=== PATIENT | female | born 1990 | race Caucasian/White ===

== ENCOUNTER 2018-02-09 20:44 | Emergency (ER) | payer BC ==
--- NOTE | 2018-02-09 20:49 | UC ---
Lower Extremity/Ankle HPI - HPI Summary HPI Summary: 27 yo female presents with left foot pain for the last 5 days. She tells me that 5 days ago her son was crying and she got up from the couch to run into the other room toward her son - she tripped on one of his toys and plantar flexed and inverted her left foot. Ever since that time has had 5th MT pain. Worse today as she had a long shift at work and was on her feet a lot. Has not taken anything for pain. She is ambulatory without assistance or significant limp. Denies numbness or tingling. - History of Current Complaint Stated Complaint: LEFT FOOT INJURY Time Seen by Provider: 02/09/18 20:48 Hx Obtained From: Patient Hx Last Menstrual Period: 08/25/15 thru 09/01/15 Onset/Duration: Sudden Onset Severity Initially: Moderate Severity Currently: Moderate Pain Intensity: 6 Pain Scale Used: 0-10 Numeric Aggravating Factor(s): Standing, Ambulation Able to Bear Weight: Yes - Allergies/Home Medications Allergies/Adverse Reactions: Allergies Allergy/AdvReac Type Severity Reaction Status Date / Time No Known Allergies Allergy Verified 02/09/18 21:02 Home Medications: Home Medications Levonorgestrel (Iud) [Mirena IUD] 20 mcg IU ONCE 02/09/18 [History Confirmed ] PMH/Surg Hx/FS Hx/Imm Hx - Additional Past Medical History Additional PMH: None Previously Healthy: Yes GI/ History: Gastroesophageal Reflux - Surgical History Surgical History: None - Family History Known Family History: Positive: None - Social History Occupation: Employed Full-time Lives: With Family Alcohol Use: Weekly Alcohol Amount: 1-2 times a week Substance Use Type: Marijuana Substance Use Comment - Amount & Last Used: maybe once a year Smoking Status (MU): Never Smoked Tobacco - Immunization History Most Recent Influenza Vaccination: none Review of Systems Constitutional: Negative Skin: Negative Respiratory: Negative Cardiovascular: Negative Neurovascular: Negative Musculoskeletal: Other: - Left foot pain Neurological: Negative Psychological: Negative All Other Systems Reviewed And Are Negative: Yes Physical Exam - Summary Physical Exam Summary: GENERAL: NAD. WDWN. No pain distress. SKIN: No rashes, sores, lesions, or open wounds. CHEST: No accessory muscle use. Breathing comfortably and in no distress. CV: Pulses intact PT and DP. Cap refill <2seconds MSK: LEFT FOOT: Moderate TTP over base of 5th MT. FROM. Strength 5/5. No edema or obvious bony deformities. Ankle NTTP. NEURO: Alert. Sensations intact and symmetric B/L LEs PSYCH: Age appropriate behavior. Triage Information Reviewed: Yes Vital Signs: Vital Signs: Temp Pulse Resp BP Pulse Ox 97.9 F 78 12 123/81 100 02/09/18 20:58 02/09/18 20:58 02/09/18 20:58 02/09/18 20:58 02/09/18 20:58 Vital Signs Reviewed: Yes Lower Extremity Course/Dx - Course Course Of Treatment: XR: wet read as there is no radiologist reading after 1999 is as follows: Negative for fracture. Suspect foot sprain. Advised to RICE, SERGIO wrap, and f/u with Sports medicine if symptoms persist or worsen. - Differential Dx/Diagnosis Provider Diagnoses: Left foot pain Discharge - Sign-Out/Discharge Documenting (check all that apply): Patient Departure - Discharge Plan Condition: Stable Disposition: HOME Patient Education Materials: Foot Sprain (ED) Referrals: Silvano Ochoa MD [Medical Doctor] - Patty Pena MD [Medical Doctor] - If Needed Additional Instructions: If you develop a fever, shortness of breath, chest pain, new or worsening symptoms - please call your PCP or go to the ED. 1) Rest, Ice, and elevate your foot as much as possible to reduce pain and swelling 2) If your symptoms persist please call Sports Medicine at the number below to schedule a follow up appointment Per institutional requirements, I have reviewed the chart, however, I was not consulted specifically or made aware of this patient by the above midlevel provider. I did not personally evaluate, interact with , or disposition this patient. - Billing Disposition and Condition Condition: STABLE Disposition: Home
[2018-02-09 21:05] VITALS: BP 123/81
--- NOTE | 2018-02-10 07:25 | RAD ---
INDICATION: Left foot injury COMPARISON: None TECHNIQUE: AP, lateral, and oblique views were obtained. FINDINGS: The bony structures, joint spaces, and soft tissues are normal for age. IMPRESSION: NEGATIVE EXAMINATION. R0
== END 2018-02-09 21:23 | disposition home or self-care (01) ==
LOC: UCCORT 20:44
DX: M79.672 Pain in left foot (principal)
CPT/HCPCS: 99212; G0463